=== PATIENT | male | born 1965 | race Caucasian/White ===

== ENCOUNTER 2018-12-26 08:24 | Emergency (ER) | payer MEDICAID, SELFPAY ==
[2018-12-26 08:25] VITALS: BP 111/80; PULSE 113; RESP 16; TEMP 36.7; O2SAT 100; BMI 22.9
--- NOTE | 2018-12-26 08:33 | ED.VISSUMM ---
- ER Visit Summary Date of Service: 12/26/18 Chief Complaint: Acute on chronic right knee pain History of Present Illness: The patient is a 53 M no significant past medical history. Patient states he has had intermittent right knee pain for years. It is on the medial aspect at its worse with walking. He denies any falls or trauma. No prior knee surgery. He denies any swelling, redness or fever. He has normal range of motion. Physical Examination: Well-appearing middle-age male. Vital signs are stable. He is afebrile. HEENT exam unremarkable. Lungs clear to auscultation bilaterally. Heart regular rhythm no murmur. Abdomen is soft and nontender. Patient is moving all 4 extremities. They are neurovascularly intact. 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 Normal dorsi plantar flexion. His right knee is nontender. It is not swollen. There is no effusion. There is no redness or warmth. He has no acute bony abnormality. He has full flexion-extension of his right knee. The ACL and PCL are both intact as are the LCL and MCL. Test Results: None Emergency Department Course and Treatment: Patient I discussed ice and anti-inflammatories. Plain x-ray really would not be of any significance at this time. He can follow-up if not improving he may need an MRI. Treatment Plan: Motrin for pain and inflammation. Follow-up with a local primary care physician. Disposition: Discharge Impression: Acute on chronic right knee pain musculoskeletal etiology This note was generated with [employer] dictation software. It may contain incorrect words, spelling, and punctuation that were not noted in review of the chart prior to signing ED Disposition - Plan for ED Patient: Referrals: Care Physician,No Primary [Primary Care Provider] -
--- NOTE | 2018-12-26 08:35 | ED.DEP ---
ED Disposition - Plan for ED Patient: Disposition: Home or Assisted Living Instructions: ED Knee Pain [facility] Referrals: Luis Antonio Stevens MD [STAFF PHYSICIAN] - 10-14 Days if not better Additional Instructions: Motrin and Tylenol for pain as needed. Follow-up with not improving.
== END 2018-12-26 08:49 | disposition home or self-care (01) ==
LOC: ED 08:45
PROVIDERS: Emergency Provider Emergency Medicine
DX: M25.561 Pain in right knee (principal); G89.29 Other chronic pain; Z72.0 Tobacco use
CPT/HCPCS: 99282

== ENCOUNTER 2019-03-30 10:24 | Emergency (ER) | payer MEDICAID, SELFPAY ==
[2019-03-30 10:24] VITALS: BP 131/89; PULSE 98; RESP 18; TEMP 36.4; O2SAT 98; BMI 22.9
--- NOTE | 2019-03-30 10:42 | ED.DCSUM_ITS ---
- ER Visit Summary Date of Service: 03/30/19 Chief Complaint: I think I may have a hernia History of Present Illness: The patient is a 53 M noticing a past medical history. No prior abdominal surgeries. Patient states for last 3 weeks he has had intermittent bulge in his right groin region. He says it reduces on its own or he can push it back in. He denies any abdominal pain. He said there is some soreness to the area. He is able to move his bowels and urinate without any difficulty. Physical Examination: Middle-aged male no acute distress. Vital signs are stable and afebrile. HEENT exam unremarkable. Neck nontender no lymphadenopathy. Lungs clear to auscultation bilaterally. Heart regular rhythm no murmur. Abdomen soft. Nondistended. Normal bowel sounds. No peritoneal signs. Right groin has an obvious inguinal hernia. It easily reduces. It is not incarcerated or strangulated. There is no signs of bowel obstruction. Left groin is nontender. Without hernia. External exam otherwise unremarkable. Patient is moving all 4 extremities. Neurologically is awake alert with no focal motor deficits. Test Results: None Emergency Department Course and Treatment: Patient has a right inguinal hernia. He will need to follow-up with a general surgeon for evaluation and repair Treatment Plan: Patient referred to both Dr.Rich Casarez or Dr. Rodney Newman for follow-up. Disposition: dc Impression: Right inguinal hernia This note was generated with [employer] dictation software. It may contain incorrect words, spelling, and punctuation that were not noted in review of the chart prior to signing ED Disposition - Plan for ED Patient: Referrals: Care Physician,No Primary [Primary Care Provider] -
--- NOTE | 2019-03-30 10:42 | ED.DEP ---
ED Disposition - Plan for ED Patient: Disposition: Home or Assisted Living Instructions: ED Hernia Inguinal Referrals: Enrique Casarez MD [STAFF PHYSICIAN] - As soon as possible Rodney Newman MD [STAFF PHYSICIAN] - As soon as possible Additional Instructions: Call and follow-up with 1 of the 2 general surgeons that I referred you to. Either 1 of them can repair this. Motrin for pain. If the hernia comes out becomes much more painful and you are unable to reduce it or if your abdomen gets significantly distended you need to be reevaluated.
[2019-03-30 10:54] VITALS: BP 134/85; PULSE 87; RESP 18
== END 2019-03-30 11:03 | disposition home or self-care (01) ==
LOC: ED 10:55
PROVIDERS: Emergency Provider Emergency Medicine
DX: K40.90 Unilateral inguinal hernia, without obstruction or gangrene, not specified as recurrent (principal); Z72.0 Tobacco use
CPT/HCPCS: 99283

== ENCOUNTER 2019-06-13 13:54 | Emergency (ER) | payer MEDICAID, SELFPAY ==
[2019-06-13 13:55] VITALS: BP 171/104; PULSE 107; RESP 16; TEMP 36.9; O2SAT 99; BMI 19.5
--- NOTE | 2019-06-13 14:42 | US_ITS ---
STUDY: SCROTUM ULTRASOUND REASON FOR EXAM: Male, 53 years old. Left scrotal lump TECHNIQUE: Ultrasound evaluation of the scrotum was performed with color Doppler and static lora-scale imaging. COMPARISON: None. FINDINGS: RIGHT TESTICLE INTRATESTICULAR: There is a normal size of the right testicle. The right testicle measures 4.4 x 2.9 x 1.9 cm. There is a homogenous echotexture. There is normal arterial and normal venous vascularity. There is no demonstrated right testicular mass or cyst. EXTRATESTICULAR: The epididymis is normal in size. The epididymis head measures 1.1 x 1.3 x 1.3 cm. There is normal vascularity of the epididymis. There is tiny epididymal cyst measuring 7 x 7 x 6 mm. There is no demonstrated hydrocele. There is no demonstrated varicocele. There is no demonstrated extratesticular mass or cyst. LEFT TESTICLE INTRATESTICULAR: There is a normal size of the left testicle. The left testicle measures 4.5 x 2.9 x 1.9 cm. There is a homogenous echotexture. There is normal arterial and normal venous vascularity. There is no demonstrated left testicular mass or cyst. EXTRATESTICULAR: The epididymis is normal in size. The epididymis head measures 1 x .9 x 0.9 cm. There is normal vascularity of the epididymis. There is epididymal cyst measuring 4 x 4 by 3 mm. There is small hydrocele. There is a Valsalva induced varicocele. There is no demonstrated extratesticular mass or cyst. The clinically palpable density corresponds to a small hypoechoic measuring approximately 1.2 cm either in or adjacent to the body of the epididymis also possibly an atypical epididymal cyst. US/Testicular with Arterial Flow IMPRESSION: No evidence for testicular mass or torsion. Small bilateral epididymal cysts and small left hydrocele as well as varicocele. The clinically palpable density in the left scrotum is nonspecific in etiology but could represent an atypical epididymal cyst or loculated fluid collection Electronically Signed: Wilfred Rodriguez MD at 16:33 EDT , Service support ,
--- NOTE | 2019-06-13 14:43 | ED.DCSUM_ITS ---
- ER Visit Summary Date of Service: 06/13/19 Chief Complaint: Testicular pain History of Present Illness: The patient is a 53 M who presents with left testicular pain that began this morning when he woke up. Patient states the pain is over the left testicle and cord. Patient states nothing makes it better or worse. Patient denies any dysuria or hematuria. Patient denies any nausea or vomiting. Patient denies any abdominal pain. Patient states he has a right inguinal hernia but his pain is over the left testicle and cord. Patient denies any fevers or chills. Physical Examination: Vital signs are stable. Patient is afebrile. Patient is in no acute distress. Heart was regular rate and rhythm. Lungs are clear and equal bilaterally. Abdomen is soft. Bowel sounds are normal. There is no tenderness. exam shows some mild tenderness along the left spermatic cord. I do not appreciate any masses. There is no testicular tenderness or mass. There is no left inguinal hernia. There is an easily reducible right inguinal hernia. There are no penile lesions. Test Results: Left testicular ultrasound was obtained. There is no evidence of testicular torsion. There is small bilateral epididymal cysts and a small left hydrocele. This was interpreted by the radiologist. Emergency Department Course and Treatment: Patient was advised of his findings. Patient was instructed to use Tylenol or Motrin as needed for pain. Patient was instructed to follow-up with his primary care physician in 5 to 7 days. Patient understood and was agreeable with the plan. All questions were answered. Disposition: Discharge home. Impression: Left testicular pain This note was generated with [employer] dictation software. It may contain incorrect words, spelling, and punctuation that were not noted in review of the chart prior to signing ED Disposition - Plan for ED Patient: Disposition: Home or Assisted Living Diagnosis: Left testicular pain, Hydrocele Instructions: TESTICULAR PAIN, Unclear Cause Referrals: Care Physician,No Primary [Primary Care Provider] - Angelica Valdivia MD [STAFF PHYSICIAN] - 5-7 Days
[2019-06-13 16:49] VITALS: BP 174/123; PULSE 88; RESP 17; O2SAT 100
--- NOTE | 2019-06-13 16:50 | ED.RN ---
DISCHARGE INSTRUCTIONS GIVEN TO AND REVIEWED WITH PATIENT, PATIENT DENIES QUESTIONS OR CONCERNS AND VOICES UNDERSTANDING OF DISCHARGE INSTRUCTIONS. PT AMBULATES OUT OF ROOM WITHOUT DIFFICULTY.
== END 2019-06-13 16:51 | disposition home or self-care (01) ==
PROVIDERS: Emergency Provider Emergency Medicine
DX: N50.812 Left testicular pain (principal); N43.3 Hydrocele, unspecified; K40.90 Unilateral inguinal hernia, without obstruction or gangrene, not specified as recurrent; N50.3 Cyst of epididymis; M54.2 Cervicalgia; G89.29 Other chronic pain; Z72.0 Tobacco use
CPT/HCPCS: 76870; 93976; 99282

== ENCOUNTER 2019-06-30 12:36 | Emergency (ER) | payer MEDICAID, SELFPAY ==
[2019-06-30 12:37] VITALS: BP 158/107; PULSE 92; RESP 16; TEMP 36.2; O2SAT 98; BMI 22.9
--- NOTE | 2019-06-30 12:44 | ED.VIS.GEN ---
History of Present Illness Chief Complaint: Abd Pain Informant: Patient Onset: Weeks Context: Sudden Onset Quality: Pain Location: Right inguinal Current Severity: Moderate Maximum Severity: Severe Worsened by: Movement Relieved by: Nothing Associated Symptoms: No associated symptoms Narrative: Patient is a 53-year-old presents with painful mass right groin. He has a known hernia. He states he had sudden pain and bulge. He has seen Dr. Casarez. Dr. Casarez informed him he needs to stop smoking. He has seen Dr. Genesis Ceja. He denies fever, chills night sweats. He denies nausea vomiting. He denies constipation. He denies dysuria, frequency, urgency or hematuria. He denies allergies to any medication Prior similar symptoms: Yes Recent Illness/Hospitalization: No - Past Medical History (1) No significant past medical history Status: Acute Past Medical History - Allergies and Home Meds Allergies/Adverse Reactions: Allergies No Known Allergies Allergy (Verified 06/30/19 12:37) Primary Care Physician: Care Physician,No Primary [Primary Care Provider] - Prior records reviewed: Yes Surgical History: no surgical history Lives: Alone Smoking Status: Current every day smoker Drugs: None Review of Systems General: Denies: Chills, Fever, Malaise, Subjective, Sweats, Weight loss, - Cardiovascular: Denies: Chest pain, Palpitations Respiratory: Denies: Dyspnea, Cough, Dyspnea on exertion Gastrointestinal: Reports: Abdominal pain. Denies: Nausea, Vomiting, Diarrhea, Constipation, Melena, Hematochezia, -, - Genitourinary: Denies: Dysuria, Hematuria, Frequency Musculoskeletal: Denies: Myalgias, Arthralgias, Neck pain, Back pain, Swelling, Extremity Pain, -, - Skin: Denies: Rash, Wounds Hematologic: Denies: Easy bruising, Easy bleeding, Lymphadenopathy, -, - Physical Exam Vital Signs/Narrative: Vital Signs Temp Pulse Resp BP Pulse Ox 06/30/19 12:37 97.2 F L 92 16 158/107 H 98 Inital Vital Signs reviewed: Yes General: Well nourished, Well developed, Acute Distress Head: Normocephalic, Atraumatic Eyes: Perrl, EOMI. Negative for: Pale conjunctiva, Scleral icterus ENT: Moist mucous membranes, No rhinorrhea Neck: Supple, Nontender. Negative for: No lymphadenopathy, No JVD, - Cardiovascular: Regular rate, Regular rhythm, No murmurs, Normal S1, Normal S2 Respiratory: No distress, CTA bilaterally, Chest nontender Abdomen: Soft, Nontender, Nondistended, Normal bowel sounds Rectal: Deferred : - - Patient has a right inguinal hernia. The hernia was easily reduced with minimal pressure. Back: Nontender, Normal Inspection Extremities: Nontender, No edema Skin: Normal color, No rash, No Trauma. Negative for: Cyanosis, Diaphoresis, Jaundice Neurological: Alert, Oriented x3, Cranial nerves II-XII grossly intact, Normal Strength, Normal Sensation Psychological: Normal affect Diagnostic/Tx/Re-eval - Medical Decision Making He has a known right inguinal hernia. Hernia became worse. Patient's hernia was reduced without difficulty. Patient be discharged to follow-up with his surgeon. He was given anti-inflammatory medication since he has no contraindication. ED Disposition - Plan for ED Patient: Disposition: Home or Assisted Living Diagnosis: Reducible right inguinal hernia Instructions: HERNIA (Inguinal, Ventral, Umbilical) Prescriptions: Ibuprofen 800 mg PO Q8 #14 tab Prescription Printed Referrals: Care Physician,No Primary [Primary Care Provider] - Genesis Ceja MD [STAFF PHYSICIAN] - 3-5 Days
== END 2019-06-30 13:03 | disposition home or self-care (01) ==
LOC: ED 12:58
PROVIDERS: Emergency Provider Emergency Medicine
DX: K40.90 Unilateral inguinal hernia, without obstruction or gangrene, not specified as recurrent (principal); F17.200 Nicotine dependence, unspecified, uncomplicated
CPT/HCPCS: 99282

== ENCOUNTER 2020-01-15 16:51 | Emergency (ER) | payer MEDICAID, SELFPAY ==
[2020-01-15 16:53] VITALS: BP 127/84; PULSE 91; RESP 14; TEMP 36.9; O2SAT 98; BMI 22.7
--- NOTE | 2020-01-15 17:23 | ED.DCSUM_ITS ---
History of Present Illness Chief Complaint: Abd Pain Informant: Patient Onset: Days Context: Gradual Onset Timing: Intermittent Current Severity: Moderate Maximum Severity: Moderate Narrative: The patient presents to the emergency department with multiple complaints. The patient states that he has a known inguinal hernia. He is been following surgery. He states that from time to time it will pop out but he is able to get it reduced. He states over the past 5 days, he has had generalized malaise and change in his urine. He states his been more dark. He denies really any abdominal pain. He is moving his bowels without issue. He denies any fevers or chills. He states that he just does not feel well. Prior similar symptoms: No Recent Illness/Hospitalization: No Past Medical History - Allergies and Home Meds Allergies/Adverse Reactions: Allergies No Known Allergies Allergy (Verified 01/15/20 16:52) Primary Care Physician: Care Physician,No Primary [Primary Care Provider] - Prior records reviewed: Yes Past Medical History: - Surgical History: no surgical history Smoking Status: Current every day smoker Review of Systems General: Reports: Malaise. Denies: Chills, Fever, Sweats Eyes: Denies: Visual changes - bilaterally, Diplopia ENT: Denies: Rhinorrhea, Sore throat Cardiovascular: Denies: Chest pain, Palpitations Respiratory: Denies: Dyspnea, Cough, Dyspnea on exertion Gastrointestinal: Denies: Abdominal pain, Nausea, Vomiting, Diarrhea, Melena, Hematochezia Genitourinary: Reports: Frequency. Denies: Dysuria, Hematuria Musculoskeletal: Denies: Back pain, Extremity Pain Skin: Denies: Rash, Wounds Neurological: Denies: Headache, Weakness, Numbness Physical Exam Vital Signs/Narrative: Vital Signs Temp Pulse Resp BP Pulse Ox 01/15/20 16:53 98.5 F 91 14 127/84 H 98 Inital Vital Signs reviewed: Yes General: Well nourished, Well developed, No Acute Distress Head: Normocephalic, Atraumatic Eyes: Perrl, EOMI ENT: Moist mucous membranes, No rhinorrhea Neck: Supple, Nontender Cardiovascular: Regular rate, Regular rhythm, No murmurs Respiratory: No distress, CTA bilaterally, Chest nontender Abdomen: Soft, Nontender, Nondistended, Normal bowel sounds Back: Nontender, Normal Inspection Extremities: Nontender, No edema Skin: Normal color, No rash Neurological: Alert, Oriented x3, Cranial nerves II-XII grossly intact, Normal Strength, Normal Sensation Psychological: Normal affect, Normal Mood Diagnostic/Tx/Re-eval Clinical Impression(s) from Imaging Studies Abdomen/Pelvis CT 01/15/20 18:14 IMPRESSION: Findings consistent with nonspecific hepatitis and splenomegaly. Contracted thick-walled gallbladder without calcified stones and pericholecystic fluid. If concern for gallbladder disease ultrasound recommended. Distended stomach with retained secretions and diffuse ileus which may be consistent with nonspecific gastroenteritis. No evidence for small bowel obstruction Electronically Signed: Wilfred Rodriguez MD at 19:03 EST , Service support , Abnormal Lab Results 01/15/20 01/15/20 01/15/20 17:20 17:20 17:35 WBC 4.1 L RBC 4.72 Hgb 14.0 Hct 44.6 MCV 94.5 H MCH 29.7 MCHC 31.4 L RDW Std Deviation 42.0 RDW Coeff of Natalie 12.1 Plt Count 141 L MPV 9.7 Immature Gran % (Auto) 0.200 Neut % (Auto) 56.4 Lymph % (Auto) 24.6 [place] % (Auto) 13.0 H Eos % (Auto) 5.1 H Baso % (Auto) 0.7 Absolute Neuts (auto) 2.3 Absolute Lymphs (auto) 1.02 Nucleated RBC % 0 Differential Comment SCANNED Sodium 139 Potassium 4.0 Chloride 104 Carbon Dioxide 32.0 Anion Gap 3 L BUN 11 Creatinine 0.98 Estim Creat Clear Calc 88.65 Est GFR (MDRD) Af Amer 102 Est GFR (MDRD) Non-Af 84 BUN/Creatinine Ratio 11.2 Glucose 113 H Calcium 8.5 Total Bilirubin 2.60 H AST 1823 H ALT 2669 H Alkaline Phosphatase 273 H Total Protein 6.7 Albumin 3.2 Globulin 3.5 Albumin/Globulin Ratio 0.9 Urine Color Georgette Urine Clarity Clear Urine pH 6.0 Ur Specific [place] 1.020 Urine Protein 30 H Urine Glucose (UA) Normal Urine Ketones 5 H Urine Occult Blood 10 H Urine Nitrite Positive H Urine Bilirubin 6 H Urine Urobilinogen 8 H Ur Leukocyte Esterase 25 H Urine RBC 0 SEEN Urine WBC 0-5 SEEN Ur Squamous Epith Cells 0 SEEN Urine Bacteria RARE Urine Mucus 1+ - Medical Decision Making The patient presents with generalized malaise, change in his urine, and just not feeling himself. He does have an easily reducible inguinal hernia. He has no abdominal tenderness. Metabolic work-up was pursued. The patient was found to have acute elevated liver enzymes. I have no old to compare to. With this, he underwent CT which shows hepatomegaly and splenomegaly. There was no evidence of ascites. There was no evidence of biliary obstruction. Given the significant elevation in his liver functions, I do feel the patient is going to require further work-up and likely GI evaluation. The patient was discussed with [facility]. He will be transferred for definitive care. Impression 1. Acute hepatitis with hepatomegaly ED Disposition - Plan for ED Patient: Referrals: Care Physician,No Primary [Primary Care Provider] -
[2020-01-15] MEDS: 0.9% Normal Saline 1,000 ML 1000 ML IV (17:33)
[2020-01-15 17:40] LABS: Absolute Lymphocyte Count 1.02 X10^3/uL (0.83-4.51); Absolute Neutrophil Count 2.3 X10^3/uL (2.0-7.7); Basophil# 0.03 X10^3/uL; Basophil% 0.7 % (0-1); Eosinophil# 0.21 X10^3/uL; Eosinophils% 5.1 % (0-5); Hematocrit 44.6 % (40-54); Lymphocyte # 1.02 X10^3/ul (4.0); Lymphocyte % 24.6 % (19-41); Mean Corp Hgb Conc 31.4 g/dL (32-36); Mean Corpuscular Hgb 29.7 pg (27.0-32.0); Mean Corpuscular Volume 94.5 fL (80-94); Mean Platelet Vol. 9.7 fl (6.2-12.0); Monocyte# 0.54 X10^3/uL; NRBC Flagged by Analyzer 0 % (0-5); Neutrophil # 2.33 X10^3/uL (2.7-7.7); Neutrophil % 56.4 % (47-70); POSITIVE MORPHOLOGY YES; Platelet Count 141 K/mm3 (150-450); RBC Distribution Width CV 12.1 % (11.6-14.6); Red Blood Count 4.72 M/mm3 (4.6-6.2); White Blood Count 4.1 K/mm3 (4.4-11.0)
[2020-01-15 17:43] LABS: Differential Indicated SCAN CRITERIA MET
[2020-01-15 17:46] LABS: Red Blood Cells-Urine 0 SEEN /hpf (0-5); Squamous Epithelial Cells - UA 0 SEEN /hpf (0-5)
[2020-01-15 17:49] LABS: Color, Urine Amber (Yellow); Glucose, Dipstick Normal (Normal); Ketone-Dipstick 5 mg/dl (Negative); Leukocyte Esterase-Dipstick 25 /ul (Negative); Nitrite-Dipstick Positive (Negative); Occult Blood-Urine 10 /ul (Negative); Protein-Dipstick 30 mg/dl (Negative); Urine Bilirubin Dipstick 6 mg/dL (Negative); Urine Clarity Clear (Clear); Urine Urobilinogen 8 mg/dl (Normal)
[2020-01-15 17:57] LABS: Bacteria RARE /hpf (None Seen); Mucous, Urine 1+ /hpf (<or=2+); White Blood Cells 0-5 SEEN /hpf (0-5)
[2020-01-15 17:59] LABS: ALB/GLOB Ratio 0.9 RATIO (0.9-2.4); AST(SGOT) 1823 U/L (15-37); Alanine Aminotransfer ALT/SGPT 2669 U/L (16-61); Albumin, Serum 3.2 g/dL (3.2-5.0); Alkaline Phosphatase 273 U/L (45-117); Anion Gap 3 (5-15); BUN 11 mg/dL (7-18); BUN/Creat Ratio 11.2 RATIO (10-20); Calcium,Total 8.5 mg/dL (8.5-10.1); Chloride 104 mmol/L (98-107); Creatinine, Serum 0.98 mg/dL (0.70-1.30); EST Glomerular Filtration Rate 84 mL/min (>60); Est Glom Filt Rate - Afr Amer 102 mL/min (>60); Estimated Creatinine Clearance 88.65 ml/min; Globulin 3.5 g/dL (2.2-4.2); Glucose 113 mg/dL (74-106); Protein, Total 6.7 g/dL (6.4-8.2); Sodium Level 139 mmol/L (136-145)
[2020-01-15 18:01] LABS: Differential Comment SCANNED
--- NOTE | 2020-01-15 18:14 | CT_ITS ---
STUDY: CT ABDOMEN AND PELVIS WITH CONTRAST REASON FOR EXAM: Male, 54 years old. ABDOMINAL PAIN, ELEVATED LFTS RADIATION DOSAGE (If Supplied By Facility): CTDIvol = ( 10.59 ) mGy, DLP = ( 592.55 ) mGycm TECHNIQUE: Transaxial images were obtained from the dome of the diaphragm to the symphysis pubis without oral contrast. IV 100mL Isovue-300 was administered. Sagittal and coronal images were reconstructed. Individualized dose optimization techniques were used for this CT. COMPARISON: None. FINDINGS: The visualized lung bases are unremarkable. The visualized portions of the heart are within normal limits. Liver is prominent but homogeneous in attenuation. There is mild periportal fluid consistent with nonspecific hepatocellular disease. Gallbladder is contracted and thick-walled without calcified stones. There appears to be a trace of pericholecystic fluid possibly due to inflammatory disease.. Spleen is enlarged but homogeneous attenuation.. Normal pancreas. Mild nonspecific mesenteric edema Normal bilateral adrenal glands. Normal right kidney. Normal left kidney. The stomach is diffusely distended and contains retained secretions. There is mild nonspecific ileus with diffuse fecal retention in the colon. No evidence for small bowel obstruction or free air. No evidence for acute appendicitis.. Normal abdominal aorta. Normal inferior vena cava. Normal retroperitoneum. Incompletely distended thick-walled bladder likely of no significance. Small bilateral fat-containing inguinal hernias Normal osseous structures. CT/Abdomen/Pelvis W IV Cont ONLY IMPRESSION: Findings consistent with nonspecific hepatitis and splenomegaly. Contracted thick-walled gallbladder without calcified stones and pericholecystic fluid. If concern for gallbladder disease ultrasound recommended. Distended stomach with retained secretions and diffuse ileus which may be consistent with nonspecific gastroenteritis. No evidence for small bowel obstruction Electronically Signed: Wilfred Rodriguez MD at 19:03 EST , Service support ,
[2020-01-15 19:58] VITALS: BP 121/78; PULSE 92; O2SAT 100
--- NOTE | 2020-01-15 20:18 | NURSING ---
ACCEPTED TO [facility] [id number] BED [id number] REPORT
[2020-01-15 20:44] VITALS: BP 120/77; PULSE 74; RESP 14; O2SAT 98
[2020-01-17 05:06] LABS: HEPATITIS B SURFACE AG Negative (Negative); Hepatitis A IgM Antibody Positive (Negative); Hepatitis B Core AB IgM Negative (Negative)
[2020-01-17 11:36] LABS: Hep C Antibodies <0.1 s/co ratio (0.0-0.9)
== END 2020-01-15 21:03 | disposition short-term general hospital (02) ==
LOC: ED 17:57
PROVIDERS: Emergency Provider Emergency Medicine
DX: B17.9 Acute viral hepatitis, unspecified (principal); K40.90 Unilateral inguinal hernia, without obstruction or gangrene, not specified as recurrent; R16.2 Hepatomegaly with splenomegaly, not elsewhere classified; F17.200 Nicotine dependence, unspecified, uncomplicated
CPT/HCPCS: 74177; 80053; 80074; 81001; 85025; 96360; 96361; 99283; J7030; Q9967; A4216

== ENCOUNTER → 2023-01-21 | Outpatient (CLI) | payer MEDICAID, SELFPAY ==
--- NOTE | 2023-01-21 16:10 | RAD_ITS ---
STUDY: X-RAY - LUMBAR SPINE REASON FOR EXAM: Male, 57 years old. Low back pain. TECHNIQUE: 3 view(s) of the lumbar spine were obtained. COMPARISON: None FINDINGS: Normal lumbar lordosis. There is no substantial scoliosis. There is a normal alignment of the vertebrae. Diffuse facet sclerosis. Intervertebral disc space narrowing at L3-4 and to the greatest degree L5-S1. Normal soft tissues. RAD/Lumbar Spine 2 or 3 Views IMPRESSION: Mild lumbosacral spondylosis most marked at L3-4, L4-5 and to the greatest degree, L5-S1. Electronically Signed: Rogers Hare, at 11:24 EST ,
== END | disposition home or self-care (01) ==
LOC: RAD 16:07
PROVIDERS: Referring Provider Nurse Practitioner Family; Visit Provider Nurse Practitioner Family
DX: M54.50 Low back pain, unspecified (principal)
CPT/HCPCS: 72100

== ENCOUNTER 2025-01-16 12:48 | Emergency (ER) | payer MEDICAID, SELFPAY ==
[2025-01-16 12:49] VITALS: BP 162/111; PULSE 98; RESP 16; TEMP 36.8; O2SAT 99; BMI 23.6
--- NOTE | 2025-01-16 13:05 | RAD_ITS ---
PROCEDURE: FOOT MIN 3 VIEWS REASON FOR EXAM: Soft tissue swelling following recent injury. TECHNIQUE: Three views of the right foot were obtained. COMPARISON: None. FINDINGS: RIGHT FOOT: No visible fracture. No suspicious bone lesion. Normal alignment. Plantar spur. Mild degree of dorsal soft tissue swelling. RAD/Foot min 3 Views IMPRESSION: Mild degree of dorsal soft tissue swelling. Reading Location: [facility]
--- NOTE | 2025-01-16 14:31 | EDS_ITS ---
HPI History of Present Illness Chief Complaint: Lower Extremity Injury Informant: patient Narrative Narrative: 3 days ago patient was in the [place] walking, and he came down a hill, putting all of his weight very firmly down on his right foot, giving him acute pain and some swelling, which is focused in his forefoot dorsally. He has had it ever since. He has been able to walk and able to walk in his boot without difficulty. No other pain or injury. PFSH PFSH Medical History no medical history Home Medications ?Medication ?Instructions ?Recorded ?Last Taken ?Type NK 01/15/20 Unknown History Allergy/AdvReac Type Severity Reaction Status Date / Time No Known Allergies Allergy Verified 01/16/25 12:50 Family History no significant family his Surgical History no surgical history Social History Smoking Status: Current every day smoker ROS ROS ED Constitutional Constitutional ED: Denies chills or fever(s) Musculoskeletal Musculoskeletal: Reports extremity pain; Denies neck pain Integumentary Denies Abrasions, rash or wounds Neurologic Neurologic: Denies paresthesias or weakness EXAM Physical Exam Const Vital Signs: 01/16/25 12:49 Temperature 98.2 F Temperature Source Oral Pulse Rate 98 Respiratory Rate 16 Blood Pressure 162/111 H Blood Pressure Mean 128 Pulse Ox 99 Oxygen Delivery Method Room Air Positive well nourished and well developed General Appearance ED: well developed and NAD Neck full ROM and supple Back/Spine normal ROM and normal to inspection Extremity Extremity Narrative: Swelling in the right forefoot. There is some ecchymosis in the proximal phalanx of the middle toe, mildly at the MTPJ of the, mildly at the MTPJ of the fourth toe. The distal metatarsals 2-4 are mildly tender but there is no disruption of the skin or deformity. There is very mild tenderness in the midfoot at the proximal aspect of his metatarsals and no deformity. There is no tenderness elsewhere in the foot including the heel concluding the ankle including the lower leg in its entirety. Full range of the ankle without difficulty or pain. Neuro oriented x3, no focal motor deficits and no sensory deficits noted Sensorium / Orientation: alert Psych mental status grossly normal and thought process normal Skin no wounds Rashes: no rashes MDM MDM MDM Narrative Medical decision making narrative: Three-view x-ray of the right foot interpretation is negative for acute fracture or dislocation. There is a hint of a possible step-off in the proximal aspect of the fourth proximal phalanx, but it is only on 1 view and appears little more likely to be chronic and not necessarily acute. Patient declines an offer for a postop shoe, he states he is doing okay with regards to his boots, supportive care advised, weightbearing as tolerated, he does not need crutches, and given podiatry to follow-up as needed. Given naproxen here for pain. Radiography Diagnostic Testing: Clinical Impression(s) from Imaging Studies Foot X-Ray 01/16/25 13:05 IMPRESSION: Mild degree of dorsal soft tissue swelling. Reading Location: [id number] Discharge Plan Triage Chief Complaint: Lower Extremity Injury ED Provider: Andrew Petty Dx/Rx/DC Orders Clinical Impression: Contusion of foot, right Instructions: ED Foot Contusion Prescriptions: No Action NK Primary Care Provider: NOT,DEFINED Referrals: Brittnee Reece DPM [Med Staff - Active Staff] - 10-14 Days if not better (or [facility] for Parents office [address]) Activity Restrictions/Additional Instructions: It is possible that you could have a small crack in one of the toe bones that is not showing up on x-ray. As long as you can get into shoes and walk comfortably, it would be a weightbearing as tolerated injury, and you do not have to follow-up if it gets better within the next couple weeks. If not you may follow-up with the search specialist above. Print Language: Irish Disposition Disposition: Home, Self Care
[2025-01-16] MEDS: Naproxen 500 MG Tablet PO (14:41)
== END 2025-01-16 14:46 | disposition home or self-care (01) ==
PROVIDERS: Emergency Provider Emergency Medicine; Visit Provider Emergency Medicine
DX: S90.31XA Contusion of right foot, initial encounter (principal); X58.XXXA Exposure to other specified factors, initial encounter; Y93.01 Activity, walking, marching and hiking; Y92.821 Forest as the place of occurrence of the external cause; F17.200 Nicotine dependence, unspecified, uncomplicated
CPT/HCPCS: 73630; 99282